=== PATIENT | female | born 1985 | race American Indian/Alaskan Native ===

== ENCOUNTER 2018-01-18 04:14 | Inpatient (IN) | payer MEDICAID ==
[2018-01-18] MEDS ORDERED: LACTATED RINGERS 1,000 ML ONE (04:36)
[2018-01-18] MEDS ORDERED: SUBLIMAZE ONE (04:37)
[2018-01-18] MEDS ORDERED: PITOCin/NS 20 UNIT/1000ML DRIP 20,000 MILLIUNITS/1,000 ML BAG IV ONE (04:47)
[2018-01-18] MEDS ORDERED: XYLOCAINE MPF 2% ONE (05:02)
[2018-01-18] MEDS ORDERED: SUBLIMAZE IV PRN (05:10)
[2018-01-18] MEDS ORDERED: MINERAL OIL PO PRN (05:10)
[2018-01-18] MEDS ORDERED: DULCOLAX PR PRN (05:14)
[2018-01-18] MEDS ORDERED: TUCKS PAD TP PRN (05:14)
[2018-01-18] MEDS ORDERED: BENADRYL PO PRN (05:14)
[2018-01-18] MEDS ORDERED: TYLENOL PO PRN (05:14)
[2018-01-18] MEDS ORDERED: ZOFRAN IV PRN (05:14)
[2018-01-18] MEDS ORDERED: PHENERGAN PO PRN (05:14)
[2018-01-18] MEDS ORDERED: LANSINOH TP PRN (05:14)
[2018-01-18] MEDS ORDERED: PHENERGAN PR PRN (05:14)
--- NOTE | 2018-01-18 05:19 | History and Physical Report ---
History of Present Illness Date of examination: 01/18/18 Date of admission: 01/18/18 04:20 Chief complaint: 32 year old presented to L&D in active labor. Patient statese she has regular contractions and leaking fluid. Patient received care at [facility] and records are available. LMP 04/29/17. EDC 02/03/18 (based on LMP); EGA 37 weeks, 5 days gestation. has been significant for vitamin D deficiency (supplemented), anemia ( supplemented with iron). labs are as follows: B+, antibody screen negative, rubella nonimmune, pap normal, HIV negative, hepatitis b surface antigen negative, RPR nonreactive , hemoglobin electrophoresis AA, quad screen negative, glucose test 96. gonrrhea negative, chlamydia negative, GBS negative. History of present illness: Leaking of water and contractions. Past History Past Medical History: no pertinent history Past Surgical History: other (induced ) [facility] History: denies: cancer, chlamydia, gonorrhea, hepatitis B, hepatitis C, herpes, HIV, syphilis Family/Genetic History: hypertension, other (asthma, chronic kidney disease, SLE , hepatitis C) Social history: , lives with family, full code. denies: smoking, alcohol abuse, prescription drug abuse, IV drug use - Obstetrical History Expected Date of Delivery: 02/03/18 Actual Gestation: 37 Week(s) 5 Day(s) : 6 Para: 3 Hx # Term Pregnancies: 4 Number of Pregnancies: 0 Spontaneous Abortions: 1 Induced : 1 Number of Living Children: 3 Medications and Allergies Allergies Allergy/AdvReac Type Severity Reaction Status Date / Time No Known Allergies Allergy Verified 01/18/18 05:33 Home Medications Medication Instructions Recorded Confirmed Last Taken Type No Known Home Medications [No 01/18/18 01/18/18 Unknown History Reported Home Medications] Active Meds: Active Medications Fentanyl (Sublimaze) 100 mcg IV Q2H PRN PRN Reason: Labor Pain Lactated Ringer's (Lactated Ringers) 1,000 mls @ 125 mls/hr IV DIRECT GISSELLE Oxytocin/Sodium Chloride (Pitocin/Ns 20 Unit/1000ml Drip) 20 units in 1,000 mls @ 125 mls/hr IV DIRECT GISSELLE Mineral Oil (Mineral Oil) 30 ml PO QHS PRN PRN Reason: Constipation Review of Systems All systems: negative (contractions and leaking of fluid) - Vital Signs Vital signs: Vital Signs Pulse Pulse Ox 88 100 01/18/18 04:50 01/18/18 04:50 Temp Pulse Resp BP Pulse Ox 88 128/60 91 01/18/18 04:59 01/18/18 04:59 01/18/18 04:53 - Physical Exam Abdomen: Positive: normal appearance, soft, normal bowel sounds. Negative: distention, tenderness, guarding, rigidity Genitourinary (Female): Positive: normal external genitalia, normal perenium. Negative: perineal/vulvar lesions Uterus: Positive: enlarged. Negative: tender Anus/Rectum: Positive: normal perianal skin Extremities: Positive: normal. Negative: tenderness, edema - Obstetrical FHR: category 2 Uterine Contraction Monitor Mode: External Cervical Dilatation: 8 Cervical Effacement Percentage: 95 station: -1 Uterine Contraction Pattern: Regular Uterine Contraction Intensity: Moderate Results All other labs normal. Assessment and Plan A: at 37 5/7 weeks gestation. Active labor. GBS negative. P: Admit. Anticipate vaginal delivery.
--- NOTE | 2018-01-18 05:20 | Procedure Note ---
OB Delivery Note - Delivery Date of Delivery: 01/18/18 Surgeon: JEOVANNY VELIZ Estimated blood loss: other (250) - Vaginal Delivery presentation: vertex Delivery position: OA Intrapartum events: precipitous labor- <3hr Delivery induction: none Delivery monitor: none Route of delivery: Delivery placenta: spontaneous Delivery cord: 2 umbilical vessels Episiotomy: none Delivery laceration: 1st degree Delivery repair: vicryl Anesthesia: local Delivery comments: Spontaneous vaginal delivery of liveborn male infant weighing 5 lb. 14 oz. over 1st degree perineal laceration with apgars of 8/9. Nuchal cord times 1, easily reduced. Baby placed immediately on maternal chest after delivery. Spontaneous cry and respirations. 3 vessel cord double clamped and cut after cessation of pulsation. Spontaneous delivery of intact placenta and membranes by childs mechanism. EBL 250 ml. Pitocin to IV fluids after delivery of placenta. First degree perineal laceration repaired with 3-0 vicryl. Fundus firm and midline. Vaginal sweep negative. Sponge count correct.
[2018-01-18] MEDS ORDERED: SODIUM CHLORIDE FLUSH SYRINGE 10 ML IV PRN (06:00)
[2018-01-18] MEDS: MOTRIN PO SCH ×4 (06:00→23:53)
[2018-01-18] MEDS ORDERED: LACTATED RINGERS 1,000 ML IV SCH (06:00)
[2018-01-18] MEDS ORDERED: PITOCin/NS 20 UNIT/1000ML DRIP 20 UNITS/1,000 ML BAG IV SCH (06:00)
[2018-01-18 06:10] LABS: Hemoglobin 10.7 gm/dl (10.1-14.3); Mean Corpuscular HGB Conc 32 % (30-34); Mean Corpuscular Volume 72 fl (79-97); Platelet Count 221 K/mm3 (140-440); Red Blood Count 4.61 M/mm3 (3.65-5.03); Red Cell Distribution Width 17.1 % (13.2-15.2)
[2018-01-18 06:14] LABS: Mean Corpuscular Hemoglobin 23 pg (28-32)
[2018-01-18 17:41] LABS: Hematocrit 30.8 % (30.3-42.9); Hemoglobin 9.9 gm/dl (10.1-14.3)
[2018-01-18] MEDS: MILK OF MAGNESIA PO PRN (19:25)
[2018-01-19] MEDS: MOTRIN PO SCH (05:59)
[2018-01-19 09:01] VITALS: BP 92/52
[2018-01-19] MEDS ORDERED: FEOSOL PO SCH (10:00)
[2018-01-19] MEDS: MILK OF MAGNESIA PO PRN (10:09)
--- NOTE | 2018-01-19 10:33 | Progress Note ---
Assessment and Plan - Patient Problems (1) Status post normal vaginal delivery Current Visit: Yes Status: Acute Plan to address problem: PPD 2 - stable Discharge to home today Follow up at [facility] as needed or in 6 weeks for exam (2) Anemia in puerperium, baby delivered during current episode of care Current Visit: Yes Status: Acute Plan to address problem: Asymptomatic Continue iron therapy Subjective - Subjective Date of service: 01/19/18 Principal diagnosis: PPD #1 Patient reports: appetite normal, voiding normally, pain well controlled, ambulating normally, other (c/o constipation), no dizzy ambulation : doing well, nursing well Objective - Vital Signs Latest vital signs: Vital Signs Temp Pulse Resp BP Pulse Ox 01/19/18 08:29 98.6 F 76 16 92/52 97 01/18/18 23:30 98.7 F 77 16 104/79 01/18/18 19:30 98.7 F 80 18 104/64 01/18/18 18:05 18 01/18/18 16:36 98.4 F 86 20 97/51 01/18/18 12:16 97.7 F 71 18 100/58 01/18/18 11:50 18 Intake and Output 01/18/18 01/19/18 01/19/18 23:59 07:59 15:59 Intake Total 300 120 Balance 300 120 Intake: Intake, Free Water 300 120 Other: # Voids Void 1 - Exam Abdomen: Present: normal appearance, soft Vulva: both: laceration/episiotomy (first degree juan) Uterus: Present: normal, firm, fundal height at umbilicus Extremities: Present: normal - Labs Labs: Abnormal lab results 01/18/18 Range/Units 17:18 Hgb 9.9 L (10.1-14.3) gm/dl
--- NOTE | 2018-01-19 10:42 | Discharge Summary ---
Providers - Providers Date of Admission: 01/18/18 04:20 Date of discharge: 01/19/18 Attending physician: GWENDOLYN MOORE MD Primary care physician: GWENDOLYN MOORE MD Hospitalization Reason for admission: active labor, IUP at term Delivery: Episiotomy: none Laceration: 1st degree Other procedures: none complications: none Discharge diagnosis: IUP at term delivered [place] baby: male Hospital course: Uncomplicated Condition at discharge: Stable Disposition: FL-01 TO HOME OR SELFCARE - Discharge Diagnoses (1) Status post normal vaginal delivery Status: Acute (2) Anemia in puerperium, baby delivered during current episode of care Status: Acute Comment: Asmyptomatic Continue iron therapy Plan - Discharge Medications Prescriptions: Ferrous Sulfate [Feosol 325 MG tab] 325 mg PO QDAY #30 tablet - Provider Discharge Summary Activity: routine, no sex for 6 weeks, no heavy lifting 4 weeks, no strenuous exercise Diet: routine Instructions: routine Additional instructions: [] Smoking cessation referral if applicable(refer to patient education folder for contact #) [] Refer to [facility] Booklet Call your doctor immediately for: * Fever > 100.5 * Heavy vaginal bleeding ( >1 pad per hour) * Severe persistent headache * Shortness of breath * Reddened, hot, painful area to leg or breast * Drainage or odor from incision. * Keep incision clean and dry at all times and follow doctor's instructions regarding bathing/showering - Follow up plan Follow up: GWENDOLYN MOORE MD [Primary Care Provider] - 6 Weeks (Follow up at [facility] as needed or in 6 weeks for exam)
== END 2018-01-19 16:15 | disposition home or self-care (01) | DRG 775 ==
LOC: TRG 04:14 → LD 04:20 → OB 06:30
PROVIDERS: ADMIT Obstetrics & Gynecology; ATTEND Obstetrics & Gynecology
PROC: 10E0XZZ Delivery of Products of Conception, External Approach (ICD-10-PCS; principal; 2018-01-18)
PROC: 0HQ9XZZ Repair Perineum Skin, External Approach (ICD-10-PCS; 2018-01-18)
DX: O62.3 Precipitate labor (principal); O70.0 First degree perineal laceration during delivery; O69.81X0 Labor and delivery complicated by cord around neck, without compression, not applicable or unspecified; O90.81 Anemia of the puerperium; D64.9 Anemia, unspecified; Z3A.37 37 weeks gestation of pregnancy; Z37.0 Single live birth
CPT/HCPCS: 36415; 85014; 85018; 85027; 86592; 86850; 86900; 86901; A6250; J2590; J3010; J7120